=== PATIENT | male | born 1970 | race Caucasian/White ===

== ENCOUNTER 2019-10-13 01:53 | Emergency (ER) | payer OTHER ==
--- NOTE | 2019-10-13 02:30 | ED Physician Documentation ---
General Adult - HISTORIAN Historian: patient - HPI Stated Complaint: nausea/vomiting Chief Complaint: General Adult Additional Information: Patient presented to ED via [facility] with nausea/vomiting, epigastric pain and feelings of dehydration. 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 He presented intoxicated. Last drink was sometime this afternoon. Patient drinks a fifth of bourbon daily. He also has a history of DM1, pancreatitis and hypertension. Patient flew from [place] to enter rehab at [facility]. His last drink was at 1500 (10/12/19). Patient states he has a history of seizures associated with alcohol withdrawal. He is also type I diabetic. Onset: hours (4) Timing: still present Severity: moderate - ROS CONST: no problems EYES/ENT: none CVS/RESP: denies: chest pain, shortness of breath GI/: vomiting, nausea. denies: abdominal pain MS/SKIN/LYMPH: none NEURO/PSYCH: denies: headache - PAST HX Past History: hypertension Other History: diabetes Type 2 Surgeries/Procedures: none Allergies/Adverse Reactions: Allergies Allergy/AdvReac Type Severity Reaction Status Date / Time NSAIDS (Non-Steroidal Allergy Verified 10/13/19 02:31 Anti-Inflamma Penicillins Allergy Verified 10/13/19 02:31 Home Medications: Ambulatory Orders Medication Instructions Recorded Albuterol Sulfate [Ventolin HFN] 2 puff IH BID 10/13/19 Cephalexin [Keflex] 500 mg PO QID 10/13/19 Clonidine HCl [Catapres] 10/13/19 Dextroamphetamine/Amphetamine 30 mg PO DAILY 10/13/19 [Adderall Xr 30 mg Capsule] Gabapentin [Neurontin] 1,200 mg PO TID 10/13/19 Insulin Glargine,Hum.rec.anlog 20 units SQ DAILY 10/13/19 [Basaglar Kwik-Pen] Insulin Lispro [Humalog Kwikpen 10/13/19 U-100] Lipase/Protease/Amylase [Creon Dr 1 tab PO TID 10/13/19 12,000 Units Capsule] Olanzapine 2.5 mg PO HS 10/13/19 Prazosin HCl 5 mg PO HS PRN 10/13/19 - SOCIAL HX Smoking History: cigarettes, greater than 1 pack/day Alcohol Use: heavy Drug Use: heroin, marijuana, other (opiods, cratum) - FAMILY HX Family History: No - REVIEWED ASSESSMENTS Nursing Assessment Reviewed: Yes Vitals Reviewed: Yes Progress - Progress Progress: 0500 Discussed need for transfer with patient. He agrees to be transferred for Pancreatitis and Alcohol withdrawal. [address] Valente, [facility] for transfer. He accepts patient. Will arrange transport. ED Results Lab/Radiology - Radiology Radiology Impressions: Report Submission Date: Oct 13, 2019 3:35:12 AM ANALYSIS LEAD Patient Study Name: DANTE LAZCANO Date: Oct 13, 2019 3:14:09 AM ANALYSIS LEAD Modality Type: CT\SR Gender: M Description: CT ABD PELVIS W/ CON : 70 Institution: [facility] Physician: SANDOR MENCHACA CT abdomen and pelvis with contrast Clinical history: Epigastric pain. Elevated lipase. Contrast administered: 90 mL of Omnipaque. Technique: CT the abdomen and pelvis is performed with intravenous administration of contrast. Sagittal and coronal reconstructions were performed by the technologist. Findings: The liver is diffusely hypodense consistent with steatosis. Gallbladder is surgically absent. Spleen demonstrates normal attenuation without focal defect. There is no adrenal abnormality. There is hypodense fluid collection adjacent to the pancreas. This is denser than expected for simple fluid collection may represent phlegmon. There is minimal stranding in the peripancreatic fat. There is no retroperitoneal mass or significant adenopathy. The appendix is visualized and is within normal limits. Vascular calcification is present. Gas and stool are evident in the colon. Scattered diverticula are seen in the descending and sigmoid colon without diverticulitis. Impression: 1. Fluid collection adjacent to the pancreas consistent with phlegmon or possibly complex pseudocyst. 2. Hepatic steatosis. 3. Postoperative changes. 4. Diverticulosis. Electronically signed on Oct 13, 2019 3:35:12 AM ANALYSIS LEAD by: Rodolfo Sanchez General Adult Physical Exam - PHYSICAL EXAM GENERAL APPEARANCE: no distress EENT: SAIMA NECK: normal inspection RESPIRATORY: no resp distress, chest non-tender, breath sounds normal CVS: reg rate & rhythm, heart sounds normal ABDOMEN: soft, normal bowel sounds, no distension, tenderness (epigastric) BACK: normal inspection SKIN: warm/dry, normal color EXTREMITIES: non-tender, no edema NEURO: oriented X3, mood/affect nml Discharge Clincal Impression: Pancreatitis, alcoholic, acute Qualifiers: Acute pancreatitis complication: no infection or necrosis Qualified Code(s): K85.20 - Alcohol induced acute pancreatitis without necrosis or infection Alcohol withdrawal Qualifiers: Complication of substance-induced condition: uncomplicated Qualified Code(s): F10.230 - Alcohol dependence with withdrawal, uncomplicated Referrals: Primary Doctor,No [Primary Care Provider] - 2 Days Comments: Transferred to [facility] under the care of Dr. Valente, hospitalist. Condition: Stable Disposition: 02 XFER SHT-TRM HOSP Decision to Admit: NO Date of Decison to Admit: 10/13/19 Decision Time: 05:23
[2019-10-13] MEDS: THIAMINE HCL 100 MG, MULTIVIT INFUSN,ADULT 1,VIT K 10 ML, FOLIC ACID 5 MG in 0.9 % SODI... IV ONE (03:05)
[2019-10-13] MEDS: ONDANSETRON HCL/PF 4 MG/ 2ML VIAL IVP ONE (03:10)
[2019-10-13] MEDS: LORazepam 2 MG/ML VIAL IV ONE ×2 (03:10→05:15)
[2019-10-13] MEDS: MULTIVIT INFUSN,ADULT 1,VIT K 10 ML VIAL IV ONE ×2 (03:23→03:25)
[2019-10-13] MEDS: FOLIC ACID 5 MG/1 ML IV ONE (03:23)
[2019-10-13] MEDS: 0.9 % SODIUM CHLORIDE 1,000 ML IV ONE ×3 (03:24→03:50)
[2019-10-13] MEDS: THIAMINE HCL 200 MG/2 ML VIAL ONE (03:25)
[2019-10-13] MEDS: FOLIC ACID 5 MG/1 ML ONE (03:25)
--- NOTE | 2019-10-13 03:38 | Diagnostic Imaging Report ---
PATIENT MR#: [id number] PATIENT PATIENT NAME: DANTE LAZCANO DATE OF : 1970 REFERRING PHYSICIAN: Billie De Los Santos EXAM DATE: 10/13/2019 ACCESSION NUMBER: [id number] EXAM DESCRIPTION: CT ABD PELVIS W/ CON CT abdomen and pelvis with contrast Clinical history: Epigastric pain. Elevated lipase. Contrast administered: 90 mL of Omnipaque. Technique: CT the abdomen and pelvis is performed with intravenous administration of contrast. Sagi ttal and coronal reconstructions were performed by the technologist. Findings: The liver is diffusely hypodense consistent with steatosis. Gallbladder is surgically abs ent. Spleen demonstrates normal attenuation without focal defect. There is no adrenal abnormality. There is hyp odense fluid collection adjacent to the pancreas. This is denser than expected for simple fluid collection may re present phlegmon. There is minimal stranding in the peripancreatic fat. There is no retroperitoneal mass or significan t adenopathy. The appendix is visualized and is within normal limits. Vascular calcification is present. Gas and stoo l are evident in the colon. Scattered diverticula are seen in the descending and sigmoid colon without diverticulitis . Impression: 1. Fluid collection adjacent to the pancreas consistent with phlegmon or possibly complex pseudocyst. 2. Hepatic steatosis. 3. Postoperative changes. 4. Diverticulosis. Read by: Dr. Rodolfo Sanchez Transcribed by: Transcribed Date: Electronically signed by: Dr. Rodolfo Sanchez Date signed: 10/13/2019 3:38:10 AM
[2019-10-13] MEDS: THIAMINE HCL 200 MG/2 ML VIAL IV ONE (03:53)
[2019-10-13 06:25] LABS: APPEARANCE,URINE CLEAR (CLEAR); COLOR,URINE YELLOW (YELLOW); OCCULT BLOOD,URINE TRACE (NEGATIVE); UROBILINOGEN URINE 0.2 Eu (0.2-1.0)
[2019-10-13 06:26] LABS: CANNABINOIDS NEGATIVE ng/mL (< 50)
[2019-10-13 06:27] LABS: METHYLENEDIOXYMETHAMPHETAMINE NEGATIVE ng/mL (<500)
[2019-10-13 06:41] LABS: BASOPHILS % 0.4 % (0.0-1.5); NEUTROPHILS # 6.2 # k/uL (1.4-7.7); eGFR (Non-African) > 60
[2019-10-13 07:24] VITALS: BP 141/99
== END 2019-10-13 07:05 | disposition short-term general hospital (02) ==
LOC: ED 01:53
DX: K85.20 Alcohol induced acute pancreatitis without necrosis or infection (principal); F10.230 Alcohol dependence with withdrawal, uncomplicated; Y90.9 Presence of alcohol in blood, level not specified
CPT/HCPCS: 74177; 80053; 80320; 80377; 81002; 83690; 85025; 96361; 96374; 96375; 96376; 99283; 99284; J2060; J2405; J3411; J3490; J7030; Q9967; G0480; G0481; S1016